=== PATIENT | female | born 1965 | race Caucasian/White ===

== ENCOUNTER 2018-10-26 23:49 | Emergency (ER) | payer BC | END 2018-10-27 01:13 | disposition home or self-care (01) | LOC: FTE 23:49 | DX: J02.9 Acute pharyngitis, unspecified (principal) | CPT/HCPCS: 99282 ==

== ENCOUNTER 2018-11-15 20:42 | Emergency (ER) | payer SELFPAY, BC | END 2018-11-15 23:20 | disposition left against medical advice (07) | LOC: E/R 20:42 | DX: Z53.21 Procedure and treatment not carried out due to patient leaving prior to being seen by health care provider (principal) | CPT/HCPCS: 93005 ==